=== PATIENT | female | born 1935 | race Caucasian/White ===

== ENCOUNTER → 2018-03-04 | Outpatient (CLI) | payer OTHER ==
[~2018-03-04] MED LIST: ASPEC81 PO; CHROPOW21 PO; GLC500 PO; LOVAZA PO; MULT-506 PO; NAPR-1169 PO; NXM/40 PO; OTC STOOL SOFTENER PO; POTASSIUM PO; PRM625 PO; PRMVC; SYN50 PO; SYN75 PO; [UNRECOGNIZED DRUG - CODE] PO
== END | disposition home or self-care (01) ==
LOC: C.LABSPEC 16:49
PROVIDERS: ATTEND Urology
DX: N39.0 Urinary tract infection, site not specified (principal); N39.41 Urge incontinence; R35.1 Nocturia